=== PATIENT | female | born 1990 | race Caucasian/White ===

== ENCOUNTER 2023-10-03 15:05 | Outpatient (OUT) | payer BC, SELFPAY ==
[2023-10-03 16:00] LABS: Free T4 0.89 ng/dL (0.76-1.46)
[2023-10-03 16:08] LABS: Free T3 2.11 pg/mL (2.18-3.98); Thyroid Stimulating Hormone 3.067 uIU/mL (0.358-3.740)
== END 2023-10-03 15:06 | disposition home or self-care (01) ==
LOC: LAB 15:05
PROVIDERS: PCP Family Medicine; Visit Provider Family Medicine
DX: E03.9 Hypothyroidism, unspecified (principal)
CPT/HCPCS: 36415; 84439; 84443; 84481

== ENCOUNTER 2024-01-28 08:42 | Outpatient (OUT) | payer BC, SELFPAY ==
--- OUTSIDE RECORDS SUMMARY | 2024-01-28 08:58 | XMS_ITS | CCD ---
Author Organization [facility] Care Team Providers Care Soldering Inspector Name Role Phone CORA BURGOS L Attending Unavailable CUTLER, NAHEED L Referring Unavailable WENGERD, MARIE Attending Unavailable CUTLER, NAHEED L Referring Unavailable SAVITA, TERESA Attending Unavailable CUTLER, NAHEED L Referring Unavailable WENGERD, MARIE Attending Unavailable CUTLER, NAHEED L Referring Unavailable WENGERD, MARIE Attending Unavailable CUTLER, NAHEED L Referring Unavailable WENGERD, MARIE Attending Unavailable CUTLER, NAHEED L Referring Unavailable BURGOS, CORA L Attending Unavailable CUTLER, NAHEED L Referring Unavailable WENGERD, MARIE Attending Unavailable CUTLER, NAHEED L Referring Unavailable WENGERD, MARIE Attending Unavailable WENGERD, MARIE Attending Unavailable CUTLER, NAHEED L Referring Unavailable WENGERD, MARIE Attending Unavailable CUTLER, NAHEED L Referring Unavailable WENGERD, MARIE Attending Unavailable CUTLER, NAHEED L Referring Unavailable SAVITA, TERESA Attending Unavailable CUTLER, NAHEED L Referring Unavailable DO Ben Washburn Primary Care Provider Self, Referral Attending Provider Unavailable DO Ben Washburn Referring Provider [phone] Ben Washburn Primary Care Unavailable Self, Referral Attending Unavailable Self, Referral Admitting Unavailable Ben Washburn Referring Unavailable Problems Problem Classification Problem Date Documented Da te Episodic/Chronic Other screening for suspected conditions (not mental disorders or infectious disease) (1 source) Encounter for screening mammogram for malignant neoplasm of breast; Translations: [Encounter for screening mammogram for malignant neoplasm of breast] Onset: 01-17-2024 Episodic Results Test Name Value Interpretation Reference Range Facil ity MM screening mammo BI w/CADo n 01-19-2024 MM screening mammo BI w/CAD [facility] Main [place] [address] [place] [address] Mammography Report Signed Patient: Melissa Chand MR#: [id number] 57 : 12/17/1968 Acct:[id number] Age/Sex: 55 / F ADM Date: 01/17/24 Loc: [place] Room: Type: [facility] Attending Dr: Referral Self Copies to: DO Ben Hernandez, SELF,REFERRAL Ordering Provider: SELF,REFERRAL Date of Service: 01/17/24 MM/MM screening mammo BI w/CAD: SCREENING CLINICAL DATA: Screening for malignancy. BILATERAL SCREENING MAMMOGRAMS - FULL FIELD DIGITAL WITH TOMOSYNTHESIS AND CAD Tomosynthesis craniocaudal and mediolateral oblique views of both breasts were obtained using low- dose digital technique. Comparison is made to prior studies from December 03, 2018 through January 22, 2022. This examination was reviewed with the aid of CAD. There are scattered fibroglandular densities. Benign calcified lesions and nodularity are seen. There are no developing masses, typically malignant calcifications or architectural distortion. There has been no significant interval change. MM/MM screening mammo BI w/CAD IMPRESSION: NO MAMMOGRAPHIC EVIDENCE OF MALIGNANCY. ROUTINE FOLLOW-UP IS RECOMMENDED IN ONE YEAR. RESULT CODE: 2 Benign Findings(s) DENSITY CODE: 2 (approximately 25-50% glandular) FOLLOW UP: 1YR The false-negative rate of mammography is approximately 10-percent. Management of a palpable abnormality must be based on clinical grounds. Patient was entered into a reminder system with a target due date for the next mammogram. Impression dictated by: Bria Sun M.D.01/19/2024 7:25 AM Dictation Location: [facility] Transcribed By: [facility] 01/19/2425 Dictated By: Bria Sun MD 01/19/24 0722 Signed By: 01/19/24 0725 Normal [facility] Encounters Encounter Date Encounter Type Care Provider Facility Start: 01-17-2024 End: 01-17-2024 ambulatory Ben Washburn Facility:[facility] Start: 01-17-2024 End: 01-17-2024 ambulatory DO Ben Washburn Work Phone: [facility] Work Phone: Start: 01-17-2024 End: 01-17-2024 Patient encounter procedure DO Ben Washburn Work Phone: [facility] Work Phone: Start: 11-06-2023 End: 11-06-2023 ambulatory MARIE WENGERD Not Available Start: 11-03-2023 End: 11-03-2023 ambulatory TERESA SAVITA Not Available Start: 10-28-2023 End: 10-28-2023 ambulatory MARIE WENGERD Not Available Start: 10-23-2023 End: 10-23-2023 ambulatory CORA L BURGOS Not Available Start: 10-21-2023 End: 10-21-2023 ambulatory TERESA SAVITA Not Available Start: 10-17-2023 End: 10-17-2023 ambulatory MARIE WENGERD Not Available Start: 10-07-2023 End: 10-07-2023 ambulatory MARIE WENGERD Not Available Start: 10-02-2023 End: 10-02-2023 ambulatory MARIE WENGERD Not Available Start: 09-25-2023 End: 09-25-2023 ambulatory MARIE WENGERD Not Available Start: 09-23-2023 End: 09-24-2023 ambulatory MARIE WENGERD Not Available Start: 09-16-2023 End: 09-16-2023 ambulatory MARIE WENGERD Not Available Start: 09-11-2023 End: 09-11-2023 ambulatory MARIE WENGERD Not Available Start: 09-05-2023 End: 09-07-2023 ambulatory CORA L BURGOS Not Available Plan of Treatment Date Care Activity Detail Author Start: 01-17-2024 MG Breast - bilatera l Screening [facility] Start: 01-17-2024 Screening mammograph y of bilateral breasts MM screening mammo BI w/CAD [facility] Payers Date Payer Category Payer Self-pay [id number] 2022 Unknown [id number] 1968 Unknown [id number] 2.16.84 [id number] 1968 Unknown [id number] 2.16.84 0.1.192367.3.579.2.1259 1968 Unknown [id number] 2.16.840 .1.247765.3.579.2.9 1968 Unknown [id number] 2.16.840 .1.885301.3.579.2.1259 1968 Unknown [id number] 2.16.840 .1.690294.3.579.2.9 1968 Unknown [id number] 2.16.840 .1.938965.3.579.2.1259 1968 Unknown [id number] 2.16.840 .1.878170.3.579.2.1259 1968 Unknown [id number] 2.16.840 .1.933069.3.579.2.1259 1968 Unknown [id number] 2.16.840 .1.337981.3.579.2.9 1968 Unknown [id number] 2.16.840 .1.960471.3.579.2.1259 1968 Unknown [id number] 2.16.840 .1.581736.3.579.2.1259 1968 Unknown [id number] 2.16.840 .1.033935.3.579.2.1259 1968 Unknown [id number] 2.16.840.1 .450582.3.579.2.1259 Unknown [id number] 2.16.8 40.1.565109.3.579.2.531 Social History Date Type Detail Facility Tobacco smoking stat [facility] Unknown if ever smoked [facility] Work Phone: Start: 12-17-1968 Sex Assigned At Female F [facility] Evaluation note Note Date & Type Note Facility Evaluation note No assessment information availa karen [facility] Work Phone: Summary Purpose Family History No Family History Records FoundNo Family History Records Found Advance Directives No Advanced Directives Records Found Advance Directive Response Recorded Date/ Time Advance Directives No December 28 5:41pm Chief Complaint and Reason for Visit Chief Complaint Screening Additional Source Comments INFORMATION SOURCE (unrecogn ized section and content) DATE CREATED AUTHOR 11/08/2023 [facility] EPIC DATE CREATED AUTHOR AUTHOR'S ORGANIZ ATION 01/19/2024 [facility] Care Teams (unrecognized sec tion and content) Team Status: Active Member Role Status Dates Ben Washburn DO Primary Care Provider Active Team Status: Inactive Member Role Status Dates Ben Washburn DO Primary Care Provider Active St art: January 17, 2024 End: January 17, 2024 Referral Self Attending Provider Active Start: Tracy biggs 2023 End: January 17, 2024 Ben Washburn DO Referring Provider Active Start : January 17, 2024 End: January 17, 2024 Goals (unrecognized section and content) Goals may be documented in a n alternate section FOR RECORDS PERTAINING TO PATIENTS WHO ARE OR HAVE BEEN ENROLLED IN A CHEMICAL DEPENDENCY/SUBSTANCEABUSE PROGRAM, SOME INFORMATION MAY BE OMITTED. This clinical summary was aggregated from multiple sources. Caution should be exercised in using it in the provision of clinical care. This summary normalizes information from multiple sources, and as a consequence, information in this document may materially change the coding, format and clinical context of patient data. In addition, data may be omitted in some cases. CLINICAL DECISIONS SHOULD BE BASED ON THE PRIMARY CLINICAL RECORDS. [facility]. provides no warranty or guarantee of the accuracy or completeness of information in this document.
[2024-01-28 09:04] LABS: Basophils Absolute Auto 0.1 10^3/uL (0.0-0.1); Basophils Percent Auto 1.1 % (0.2-2.0); Eosinophils Absolute Auto 0.1 10^3/uL (0.0-0.7); Eosinophils Percent Auto 2.7 % (0.9-7.0); Hematocrit 38.2 % (36.0-48.0); Hemoglobin 12.1 g/dL (12.0-16.0); Immature Granulocytes Abs Auto 0.01 10^3/uL (0.00-0.03); Immature Granulocytes Pct Auto 0.2 % (0.0-0.5); Lymphocytes Absolute Auto 1.4 10^3/uL (1.2-3.8); Lymphocytes Percent Auto 31.2 % (20.5-60.0); Mean Corpuscular HGB Conc 31.7 g/dL (29.9-35.2); Mean Corpuscular Hemoglobin 29.4 pg (26.7-34.0); Mean Corpuscular Volume 92.9 fL (81.0-99.0); Mean Platelet Volume 10.4 fL (9.5-13.5); Monocytes Absolute Auto 0.3 10^3/uL (0.3-0.8); Monocytes Percent Auto 6.6 % (1.7-12.0); Neutrophils Absolute Auto 2.6 10^3/uL (1.4-6.5); Neutrophils Percent Auto 58.2 % (43.0-75.0); Platelet Count 307 10^3/uL (150-450); Red Blood Count 4.11 10^6/uL (4.20-5.40); Red Cell Distribution Width 12.8 % (11.0-15.0); White Blood Count 4.5 10^3/uL (4.0-11.0)
[2024-01-28 09:29] LABS: Estimated Average Glucose 114 mg/dL; Glycohemoglobin A1C 5.6 % (4.5-6.2)
[2024-01-28 13:35] LABS: Alanine Aminotransferase 22 U/L (14-59); Albumin Level 3.3 g/dL (3.4-5.0); Alkaline Phosphatase 76 U/L (46-116); Anion Gap 13.1; Aspartate Amino Transferase 13 U/L (15-37); BUN Creatinine Ratio 18.6; Bilirubin Direct 0.1 mg/dL (0.0-0.2); Bilirubin Total 0.5 mg/dL (0.2-1.0); Calcium 8.3 mg/dL (8.5-10.1); Carbon Dioxide 25.1 mmol/L (21.0-32.0); Chloride 106 mmol/L (98-107); Chol HDL Ratio 3.1; Cholesterol 162 mg/dL (<=200); Estimated GFR (African America >60 (>=60); Estimated GFR (Non-African Ame >60 (>=60); Free T3 2.67 pg/mL (2.18-3.98); Globulin 3.2 g/dL; Glucose 101 mg/dL (74-106); HDL Cholesterol 52 mg/dL (40-60); LDL Cholesterol Calculated 96.6 mg/dL; Potassium 4.2 mmol/L (3.5-5.1); Sodium 140 mmol/L (136-145); Thyroid Stimulating Hormone 2.052 uIU/mL (0.358-3.740); Total Protein 6.5 g/dL (6.4-8.2); Triglycerides 67 mg/dL (<=150); VLDL CHOLESTEROL 13.4 mg/dL
== END 2024-01-28 08:43 | disposition home or self-care (01) ==
LOC: LAB 08:43
PROVIDERS: PCP Family Medicine; Visit Provider Family Medicine
DX: Z00.00 Encounter for general adult medical examination without abnormal findings (principal); E03.9 Hypothyroidism, unspecified
CPT/HCPCS: 36415; 80048; 80061; 80076; 83036; 84439; 84443; 84481; 85025

== ENCOUNTER 2025-06-08 08:08 | Emergency (ER) | payer OTHER, BC, SELFPAY ==
[2025-06-08 08:12] VITALS: PULSE 71; TEMP 36.5; O2SAT 98; BMI 44.3
[2025-06-08 08:18] VITALS: BP 131/89
--- OUTSIDE RECORDS SUMMARY | 2025-06-08 08:19 | XMS_ITS | Encounter Summary ---
Author Organization [facility] Address [address] [place] [address] Care Team Providers Care Cath Lab Nurse Name Role Phone Shaikh BAO Lauren Primary Care Provider Isael Rodarte MD Primary Care Provider Isael Rodarte MD Primary Care Provider Isael Rodarte MD Unavailable Isael Rodarte MD Unavailable Encounter Details Date Type Department Care Team (Late st Contact Info) Description 10/03/2023 Orders Only [facility] [address] [place] [address] Isael Rodarte MD [address] [place] [address] Acquired hypothyroidism (Primary Dx) Social History Tobacco Use Types Packs/Day Years Used Date Smoking Tobacco: Never Smokeless Tobacco: Never Comments Unknown Sex and Gender Information Value Date Recorded Sex Assigned at Not on file Legal Sex Female 1:33 PM EDT Gender Identity Not on file Sexual Orientation Not on file documented as of this encounter Plan of Treatment Not on file documented as of this encounter Visit Diagnoses Diagnosis Acquired hypothyroidism- Primary Unspecified hypothyroidism documented in this encounter Care Teams Cath Lab Nurse Relationship Specialty Start Date End Date Shaikh Lauren MD PCP - General Internal Medicine 10/01/23 10/22/23 Isael Rodarte MD PCP - General Family Medicine 10/23/23 01/27/24 Isael Rodarte MD [address] [place] [phone] PCP - General Family Medicine 01/28/24 Isael Rodarte MD [address] [place] [address] PCP - [employer] 01/26/2409/25 Isael Rodarte MD [address] [place] [phone] PCP - [employer] 01/25/25 documented as of this encounter
--- OUTSIDE RECORDS SUMMARY | 2025-06-08 08:19 | XMS_ITS | Patient Health Record ---
Author Organization [facility] vices Address [address] [place] [place], [place] [id number] Care Team Providers Care Chemical Operator Name Role Phone Ras Arenas Primary Care Provider Aida Medina Unavailable [phone] Amee Rogers Unavailable [phone] Allergies Allergen (clinical drug ingredient) Drug/Non Drug Allergy documented on EMR Reaction Allergy Type Onset Date Status Latex Latex Unknown Allergy Active Results Component Value Reference Range Notes LIPID PANEL WITH REFLEX TO D IRECT LDL Reviewed date:10/21/2024 08:00:50 AM Interpretation: Performing Lab: Notes/Report: CHOLESTEROL 170 100-199 mg/dL TRIGLYCERIDES 112 20-149 mg/dL VLDL-CHOL, CALCULATED 22 <30 mg/dL HDL-CHOL 48 >=50 mg/dL LDL-CHOL, CALCULATED 100 <130 mg/dL ADULT LDL CHOLESTEROL CLASSIFICATION <100mg/dL Optimal 100-129 Near/Abov e Optimal 130-159mg/dL Borderlin e High >160mg/dL High Risk Desirable range <100 mg/dL for patients with CHD or diabetes and <70 mg/dL for diabetic patients with known heart disease. Direct LDL is recommended for patients with triglycerides >400. LDL/HDL 2.1 <4.1 LDL/HDL RATIO MALE FEMALE below average risk <2.3 <2.3 average risk <5.0 <4.1 moderate risk <7.1 <5.6 high risk >7.1 >5.6 CHOL/HDL 3.5 2.0-4.5 HEMOGLOBIN A1C Reviewed date:10/21/2024 08:00:59 AM Interpretation: Performing Lab: Notes/Report: HEMOGLOBIN A1C 5.2 <5.7 % Prediabetes: 5.7% to 6.4% Diabetes: >6.4% Glycemic control for adults with diabetes: <7.0% Use with caution in patients with abnormal hemoglobin variants as the half-life of red blood cells and in vivo glycation rates are affected. AVERAGE WHOLE BLOOD GLUCOSE 103 <126 mg/dl UNLESS OTHERWISE INDICATED, ALL TESTING PERFORMED AT: [email or web address]. [address] [place] [address] SPECIFICATION CONSULTANT: FLAQUITA RIVERS M.D. CLIA NUMBER [id number] CAP ACCREDITATION AUID [id number] HIV-1 2 COMBO AG/AB Reviewed date:10/21/2024 08:00:56 AM Interpretation: Performing Lab: Notes/Report: Negative for HIV-1 antigen and HIV-1/HIV-2 antibodies. No laboratory evidence of HIV infection. Does not exclude the possibility of exposure to or infection with HIV-1 and/or HIV-2 that are below the limit of detection of this assay. HIV-1,2 COMBO AG/AB Nonreactive Nonreactive HIV-1 p24 Ag Nonreactive Nonreactive HIV-1/HIV-2 Abs Nonreactive Nonreactive UDS PAP Screening Reviewed date:05/25/2025 08:30:45 AM Interpretation: Performing Lab: Notes/Report: UDS HPV Screening Reviewed date:05/25/2025 08:25:35 AM Interpretation: Performing Lab: Notes/Report: DRUGS OF ABUSE 7 PANEL URINE - SCREEN REFLEX TO CONFIRMATION Reviewed date:11/08/2024 06:58:07 AM Interpretation: Performing Lab: Notes/Report: CLIA NUMBER [id number] CAP ACCREDITATION AUID [id number] SPECIFICATION CONSULTANT: FLAQUITA RIVERS M.D. [email or web address]. [address] [place] [address] UNLESS OTHERWISE INDICATED, ALL TESTING PERFORMED AT: Oxidant <=200 mg/L Creatinine,Urinary >=20 mg/dL Phencyclidine 25 ng/mL Oxycodone 100 ng/mL Opiates 300 ng/mL THC(Marijuana) 20 ng/mL Cocaine 150 ng/mL Benzodiazepines 100 ng/mL Barbiturates 200 ng/mL Amphetamines 300 ng/mL CUTOFFS FOR DRUG SCREEN TESTING: AMPHETAMINES NEGATIVE BARBITURATES NEGATIVE BENZODIAZEPINE NEGATIVE COCAINE NEGATIVE THC (CANNABIS) NEGATIVE OPIATES NEGATIVE PHENCYCLIDINE NEGATIVE OXYCODONE NEGATIVE CREATININE,URINARY 30.3 OXIDANT 12 Strep Screen Reviewed date:02/21/2025 07:11:56 PM Interpretation: Performing Lab: Notes/Report: Result positive Reason For Referral No Information Medications Medication SIG (Take, Route, Frequency, Duration) Notes Start Date End Date Status Liraglutide 18 MG/3ML as directed Subcutaneous daily; Duration: 30 days 01/03/2025 Not-Taking Fluconazole 200 MG 1 tablet Orally; Duration: 10 day(s) 02/10/2025 Active Topamax 25 MG 1 tablet Orally twic e a day; Duration: 90 days 10/14/2024 Active Zoloft 50 MG 1 tablet Orally Once a day; Duration: 90 days Active Meclizine HCl 12.5 MG 1 tablet as needed Orally every 12 hrs; Duration: 7 days 12/28/2024 Active Amoxicillin 500 MG 1 capsule Orally twi ce a day; Duration: 10 days 02/10/2025 Active Levothyroxine Sodium 88 MCG 1 tablet in the morning on an empty stomach Orally Once a day; Duration: 90 days 11/24/2024 Active SUMAtriptan Succinate 25 MG TAKE 1 TAB ONE TIME IF NEEDED FOR MIGRAINE. MAY REPEAT DOSE 2 HRS IF NO RELIEF.MAX 2 TABS/24HRS Oral daily; Duration: 30 days appropriate amount Active Phentermine HCl 37.5 MG 1 capsule Orally Once a day; Duration: 30 days 12/06/2024 Active predniSONE 50 MG 1 tablet with food o r milk Orally Once a day; Duration: 5 day(s) 01/17/2025 Active Social History Tobacco Use: Social History Observation Description Date Details (start date - stop date) Never Smoker NA - NA Sex Assigned At : Social History Observation Description Sex Assigned At Female Tobacco Use/Smoking Question Answer Notes Tobacco use: nonsmoker patient enter ed data CAGE-AID Questionnaire (2018 Edition) Question Answer Notes Have you ever felt that you ought to cut down on your drinking or drug use? No patient entered data Have people annoyed you by c riticizing your drinking or drug use? No patient entered data Have you ever felt bad or gu ilty about your drinking or drug use? No patient entered data Have you ever had a drink or used drugs first thing in the morning to steady your nerves or to get rid of a hangover? No patient entered data CAGE-AID Score 0 Interpretation Negative PRAPARE Question Answer Notes Date Completed/Updated: 11/16/2024 fermin nt entered data What is your current housing situation? I have housing patient entered data Are you worried about losing your housing? No patient entered data What is the highest level of school that you have finished? 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 Check all that apply I do not have problems meeting my needs Has lack of transportation k ept you from medical appointments, meetings, work or from getting things needed for daily living? No How often do you see or talk to people that you care about and feel close to? (For example: talking to friends on the phone, visiting friends or family, going to mormon or club meetings) More than 5 times a week patient entered data How stressed are you? Stress is when someone feels tense, nervous, anxious, or can't sleep at night because their mind is troubled Quite a bit patient entered data In the past year have you sp ent more than 2 nights in a row in a long term, [place] health care facility, care home center, or juvenile correctional facility? No patient entered kassy a Are you a refugee? No patient en tered data What country are you from? [place] pradeep lópez entered data Do you feel physically and emotionally safe where you currently live? Yes patient entered data In the past year, have you b een afraid of your partner or ex-partner? No patient entered data PRAPARE Score: 2 Problems Problem Type SNOMED Code ICD Code Onset Dates Problem Status W/U Status Risk Notes Problem Anxiety (43584481) Anxiety (F41.9) Active confirmed Problem BMI 40.0-44.9, adult (Z68.41) Active confirmed Problem Obese (576834910) Obese (E66.9) Active confirmed Vital Signs Heart Rate 66 /min 02/01/2025 Hardin, Ser vando 02/01/2025 09:55:43 AM EDT > Temperature 97.7 degrees Fahrenheit 02/01/2025 Vald ovinos, Dawson 02/01/2025 09:55:43 AM EDT > Respiratory Rate 18 /min 02/10/2025 Hardin, Dawson 02/10/2025 08:26:17 AM EDT > Height-cm 175.26 cm 02/10/2025 Hardin, Ser vando 02/10/2025 08:26:17 AM EDT > Oximetry 98 % 02/01/2025 Hardin, Ser vando 02/01/2025 09:55:43 AM EDT > Blood pressure diastolic 88 mm Hg 02/01/2025 Shereen dovinos, Dawson 02/01/2025 09:55:43 AM EDT > Weight-kg 133.81 kg 02/01/2025 Hardin, Ser vando 02/01/2025 09:55:43 AM EDT > Height 69 in 02/10/2025 Hardin, Ser vando 02/10/2025 08:26:17 AM EDT > Blood pressure systolic 133 mm Hg 02/01/2025 Vald ovinos, Dawson 02/01/2025 09:55:43 AM EDT > Weight 295 lbs 02/01/2025 Hardin, Ser vando 02/01/2025 09:55:43 AM EDT > BMI 43.56 kg/m2 02/01/2025 Hardin, Ser vando 02/01/2025 09:55:43 AM EDT > Encounters Encounter Location Date Provider Diagnosis Main [address] [place], [place] [id number] 10/14/2024 Ras Arenas Encounter for wellne ss examination in adult Z00.00 ; Screening for diabetes mellitus Z13.1 ; Encounter for screening for HIV Z11.4 ; Screening for cervical cancer Z12.4 ; Encounter for screening for cardiovascular disorders Z13.6 ; Dietary counseling Z71.3 ; Exercise counseling Z71.82 ; Obese E66.9 and BMI 40.0-44.9, adult Z68.41 Main [address] [place], [place] [id number] 11/03/2024 Ras Studd [address] [place], [place] [id number] 11/16/2024 Ras Studd Obese E66.[address] [place], [place] [id number] 12/06/2024 Ras Studd BMI 40.0-44.9, adult Z68.41 and Anxiety F41.[address] [place], [place] [id number] 01/03/2025 Ras Studd BMI 40.0-44.9, adult Z68.[address] [place], [place] [id number] 02/01/2025 Amee [facility] for weight management Z76.[address] [place], [place] [id number] 02/10/2025 Ras Studd Strep pharyngitis J0 2.[address] [place], [place] [id number] 11/04/2024 Ras Studd BMI 40.0-44.9, adult Z68.41 and Obese E66.[address] [place], [place] [id number] 11/09/2024 Ras Studd [address] [place], [place] [id number] 11/12/2024 Ras Studd [address] [place], [place] [id number] 11/23/2024 Ras Studd [address] [place], [place] [id number] 11/23/2024 Ras Studd [address] [place], [place] [id number] 11/24/2024 Ras Studd [address] [place] [id number] 12/02/2024 Ras Studd [place] [address] [place] [address] et [place], [place] [id number] 12/13/2024 Ras Studd [address] [place], [place] [id number] 12/28/2024 Ras Studd [address] [place], [place] [id number] 01/17/2025 Ras Studd [address] [place], [place] [id number] 01/28/2025 Ras Studd [address] [place], [place] [id number] 01/31/2025 Ras Studd BMI 40.0-44.9, adult Z68.[address] [place], [place] [id number] 02/01/2025 Ras Studd BMI 40.0-44.9, adult Z68.[address] [place], [place] [id number] 02/01/2025 Ras Studd BMI 40.0-44.9, adult Z68.[address] [place], [place] [id number] 04/04/2025 Ras Studd Main [address] [place], [place] [id number] 04/26/2025 Ras Studd Main [address] [place], [place] [id number] 05/30/2025 Ras Studd Anxiety F41.9 Assessments Encounter Date Diagnosis (ICD Code) Assessment Notes Treatment Notes Treatment Clinical Notes Section Notes 12/06/2024 BMI 40.0-44.9, adult (ICD-10 - Z68.41) I will continue Phentamine controlled substance agreement signed OARS review pt has demonstrated weight loss 01/03/2025 BMI 40.0-44.9, adult (ICD-10 - Z68.41) Pt will start Victoza daily at this time I discussed the risk with the pt she almanza top Phentamine at this encouraged exercise and healthy diet pt will follow in 4 weeks pt agreeable with the plan 11/16/2024 Obese (ICD-10 - E66.9) pt has been exhibiting lifestyle changes and has lsot weight ove the last month. i will continue the phentramine 37.5mg as this is what she has been perscribed by her previous perscriber. I have taken over the phentramien perscribing at this time. Pt has signed a contorlled substance agreement with me. OARS has been checked. pt vitals are stable pts has no cardiac concerns pt is utilizes IUD for contraception pt will call with any symptoms pt will report to ER with worrisome symptoms such as SOB, chest pain, severe headache etc pt will follow in 4 weeks for BP check, weight loss check and refill 12/06/2024 Anxiety (ICD-10 - F41.9) Pts anxiety has increased with life event I will increase her dose of Zoloft at this time 11/04/2024 BMI 40.0-44.9, adult (ICD-10 - Z68.41) 11/04/2024 Obese (ICD-10 - E66.9) 01/31/2025 BMI 40.0-44.9, adult (ICD-10 - Z68.41) 02/01/2025 BMI 40.0-44.9, adult (ICD-10 - Z68.41) 02/01/2025 BMI 40.0-44.9, adult (ICD-10 - Z68.41) 02/01/2025 Encounter for weight management (ICD-10 - Z76.89) 02/10/2025 Strep pharyngitis (ICD-10 - J02.0) We will treat with antibiotics. Complete the course as advised. Take Tylenol as needed. Keep yourself hydrated. Discussed reassuring vs non reassuring symptoms and when to return to office or go to ER. Patient verbalized understanding 05/30/2025 Anxiety (ICD-10 - F41.9) 10/14/2024 Screening for diabetes mellitus (ICD-10 - Z13.1) 10/14/2024 Encounter for wellness examination in adult (ICD-10 - Z00.00) Pt is here for wellness today. Overall health is okay. I advised to get baseline tests and pt is agreeable for that. I advised regular exercise and eating a balanced diet with focus on eating less fried and fatty foods and eating more fresh fruits and vegetable in an attempt to achieve and maintain a healthy BMI and PVU We discussed the importance of vaccination including covid shots and yearly flu shots and all questions were answered in detail today. Pt will see us back in 4 week to discuss weight loss and any abnormal labs 10/14/2024 Encounter for screening for HIV (ICD-10 - Z11.4) 10/14/2024 Screening for cervical cancer (ICD-10 - Z12.4) 10/14/2024 Encounter for screening for cardiovascular disorders (ICD-10 - Z13.6) 10/14/2024 Dietary counseling (ICD-10 - Z71.3) 10/14/2024 Exercise counseling (ICD-10 - Z71.82) 10/14/2024 Obese (ICD-10 - E66.9) 10/14/2024 BMI 40.0-44.9, adult (ICD-10 - Z68.41) 11/23/2024 Other C[facility] Respon se got Denied on 2024-11-24 09:41:46 for 'Levothyroxine Sodium 88 MCG Capsule'Pharmacy Notes: Prescription not found. Contact Pharmacy by other means Plan Of Treatment No Information Insurance Providers Payer Name Payer Address Payer Phone Subscriber Number Group Number Insured Name Patient Relationship to Insured Coverage Start Date Coverage End Date Jose bs [address] [place], [place] [id number] Linnea Valle Self - patient is the insured Medical (General) History Medical History History ICD Code hypothyroidsim anxiety Surgical History Surgery Date(Month/Year) cholecystectomy 2019 Hospitalization History Reason Date(Month/Year) see surgical hx
--- OUTSIDE RECORDS SUMMARY | 2025-06-08 08:19 | XMS_ITS | Clinical Summary ---
Author Organization [facility] Healthcare Address [address] [place] [address] Care Team Providers Care Cigarette Tester Name Role Phone Isael Rodarte MD Primary Care Provider [phone] Isael Rodarte MD Unavailable Allergies No known active allergies Medications phentermine (Adipex-P) 37.5 MG tabletIndications:M orbid obesity due to excess calories (CMS-HCC) Take 1 tablet (37.5 mg) by mouth in the morning. Take before meals. 30 tablet 4 Active predniSONE (Deltasone) 10 MG tabletIndications:L umbar strain, initial encounter 6 PO daily x 3 days, 4 PO daily x 3 days, 2 PO daily x 3 days, 1 PO daily x 3 days 39 tablet 4 Active methocarbamol (Robaxin) 750 MG tabletIndications:L umbar strain, initial encounter Take 1 tablet (750 mg) by mouth 4 (four) times a day as needed for muscle spasms 30 tablet 2 4 Active SUMAtriptan (Imitrex) 25 MG tabletIndications:M igraine with aura and without status migrainosus, not intractable Take 1 tablet (25 mg) by mouth 1 (one) time if needed for migraine May repeat dose once in 2 hours if no relief. Do not exceed 2 doses in 24 hours. 9 tablet 3 4 Active sertraline (Zoloft) 25 MG tabletIndications:G eneralized anxiety disorder Take 1 tablet (25 mg) by mouth Daily 30 tablet 3 4 Active topiramate (Topamax) 25 MG tabletIndications:M igraine with aura, not intractable, without status migrainosus,Migrain e with aura Take 1 tablet (25 mg) by mouth in the morning and 1 tablet (25 mg) before bedtime. 180 tablet 1 4 Active levothyroxine (Synthroid, Levoxyl) 88 MCG tabletIndications:A cquired hypothyroidism TAKE 1 TABLET BY MOUTH IN THE MORNING BEFORE A MEAL 90 tablet 3 4 Active Active Problems Problem Noted Date Diagnosed Date Lumbar strain, initial encounter 03/02/2024 Assessment & Plan (03/02/2024 10:33 AM EDT): Recently with increased activity and exam shows strain. Treat with prednisone tapered over 12 days. Use robaxin PRN. Use OTC for pain. Use heat and massage PRN. Continue home stretches. Off work 02/23-03/07 and return 03/08. If no improvement in symptoms will need x-ray and PT. Acute non-recurrent pansinusitis 03/02/2024 Assessment & Plan (03/02/2024 10:31 AM EDT): Take antibiotics BID for 10 days. Use prednisone for inflammation. Use sudafed or other decongestants as needed. Use Robitussin or Robitussin-DM for cough. Can use afrin for congestion but no longer than 3 days. Can use Mucinex to bring up phlegm. Use Motrin or Tylenol as needed for fever, aches, or pains. Increase fluid intake and rest. Should improve over next 5-7 days and if no better or worse call for re-evaluation. Motion sickness 02/12/2024 Annual physical exam 01/28/2024 Assessment & Plan (01/28/2024 8:21 AM EDT): Due for labs. Discussed proper diet and regular aerobic exercise. Need aerobic exercise 5-6 days a week for 30 minutes at a time. Smaller portions and limit total calories. Colonoscopy after age 45. Tetanus every 10 years. Advised not to smoke. Discussed daily Aspirin therapy. Migraine with aura and witho ut status migrainosus, not intractable 10/02/2023 Assessment & Plan (11/27/2023 10:00 AM EST): GALLEGOS stable with topamax and continue. Use imitrex PRN. Generalized anxiety disorder 10/02/2023 Assessment & Plan (01/28/2024 8:21 AM EDT): Symptoms well controlled with zoloft and continue. Assessment & Plan (11/27/2023 10:00 AM EST): Symptoms controlled with zoloft and continue. Acquired hypothyroidism 10/02/2023 Assessment & Plan (11/27/2023 9:59 AM EST): No signs of low thyroid and continue synthroid. Assessment & Plan (10/02/2023 3:23 PM EST): No signs of low thyroid and continue medication. Due for labs. Metabolic syndrome 10/02/2023 Morbid obesity due to excess calories 10/02/2023 Assessment & Plan (02/12/2024 9:33 AM EDT): Patient doing well with adipex and lost 8 pounds since last visit. Tolerating well with only mild dry mouth. Continue with dietary changes and less calories. Need to limit snacking and smaller portions. Continue healthier choices. Need regular aerobic exercise 30 minutes at a time 5-6 days a week. Refill for another month. OARRS reviewed. Continue meds as prescribed. If develop new or worsening symptoms contact office. Assessment & Plan (01/28/2024 8:22 AM EDT): Patient doing well with adipex and lost 12 pounds since starting. Tolerating well with only mild dry mouth. Continue with dietary changes and less calories. Need to limit snacking and smaller portions. Continue healthier choices. Need regular aerobic exercise 30 minutes at a time 5-6 days a week. Refill for another month. OARRS reviewed. Continue meds as prescribed. If develop new or worsening symptoms contact office. Assessment & Plan (11/27/2023 10:00 AM EST): Patient doing well with adipex and lost 12 pounds in 2 months. Tolerating well with only mild dry mouth. Continue with dietary changes and less calories. Need to limit snacking and smaller portions. Continue healthier choices. Need regular aerobic exercise 30 minutes at a time 5-6 days a week. Refill for another month. OARRS reviewed. Continue meds as prescribed. If develop new or worsening symptoms contact office. Assessment & Plan (10/30/2023 1:42 PM EST): Doing well with adipex and weight down 8 pounds. Continue for another month. Assessment & Plan (10/02/2023 3:24 PM EST): Patient overweight and difficult time losing weight. Discussed proper diet and regular aerobic exercise. Recommend Weight Watchers and need to limit calories and smaller portions. Need to increase activity and regular aerobic exercise several days a week for 30 minutes at a time. Interested in adipex and warned of potential cardiac side effects. Script written for first month and will need to recheck weight in 1 month. OARRS reviewed. Continue medications as prescribed. Resolved Problems Problem Noted Date Diagnosed Date Resolved Date Vaginal saul 10/02/2023 11/27/2023 Assessment & Plan (10/02/2023 3:24 PM EST): C/o yeast infection and treat with diflucan. Family History Medical History Relation Name Comments Hypertension Father Hypertension Mother Heart disease Paternal Grandfather Cancer Paternal Grandmother Relation Name Status Comments Father Mother Paternal Grandfather Paternal Grandmother Social History Tobacco Use Types Packs/Day Years Used Date Smoking Tobacco: Never Smokeless Tobacco: Never Tobacco Cessation:Counseling Given: Not Answered Social Connection and Isolat ion Panel [NHANES] Answer Date Recorded In a typical week, how many times do you talk on the phone with family, friends, or neighbors? More than three times a week 01/27/2024 How often do you get togethe r with friends or relatives? More than three times a week 01/27/2024 How often do you attend chur or cheondoism services? 1 to 4 times per year 01/27/2024 Do you belong to any clubs o r organizations such as sikh groups, unions, fraternal or athletic groups, or school groups? Yes 01/27/2024 How often do you attend meet ings of the clubs or organizations you belong to? 1 to 4 times per year 01/27/2024 Are you , , di vorced, , never , or living with a partner? 01/27/2024 AUDIT-C Answer Date Recorded Q1: How often do you have a drink containing alc ohol? 2-4 times a month 01/27/2024 Q2: How many drinks containi ng alcohol do you have on a typical day when you are drinking? 3 or 4 01/27/2024 Q3: How often do you have si x or more drinks on one occasion? Less than monthly 01/27/2024 Overall Financial Resource Strain (CARDIA) Answe r Date Recorded How hard is it for you to pa y for the very basics like food, housing, medical care, and heating? Not hard at all 01/27/2024 [facility] - Occupational Stress Questionnaire Answer Date Recorded Do you feel stress - tense, restless, nervous, or anxious, or unable to sleep at night because your mind is troubled all the time - these days? To some extent 01/27/2024 Exercise Vital Sign Answer Date Recorde d On average, how many days pe r week do you engage in moderate to strenuous exercise (like a brisk walk)? 4 days 01/27/2024 On average, how many minutes do you engage in exercise at this level? 60 min 01/27/2024 Hunger Vital Sign Answer Date Recorded Within the past 12 months, y ou worried that your food would run out before you got the money to buy more. Never true 01/27/20 24 Within the past 12 months, t he food you bought just didn't last and you didn't have money to get more. Never true 01/27/2024 PRAPARE - Transportation Answer Date Re corded In the past 12 months, has l ack of transportation kept you from medical appointments or from getting medications? No 11/2023 In the past 12 months, has l ack of transportation kept you from meetings, work, or from getting things needed for daily living? No 01/27/2024 Housing Stability Vital Sign Answer Blu e Recorded In the last 12 months, was t here a time when you were not able to pay the mortgage or rent on time? No 01/27/2024 Number of Places Lived in the Last Year Not on f ile 01/27/2024 In the last 12 months, was t here a time when you did not have a steady place to sleep or slept in a detention (including now)? No 01/27/2024 Comments Unknown Sex and Gender Information Value Date Recorded Sex Assigned at Not on file Legal Sex Female 1:33 PM EDT Gender Identity Not on file Sexual Orientation Not on file Last Filed Vital Signs Vital Sign Reading Time Taken Comments Blood Pressure 150/90 03/02/2024 9:51 AM EDT Pulse 94 03/02/2024 9:51 AM EDT Temperature 36.9 C (98.4 F) 03/02/2024 9:51 AM EDT Respiratory Rate 20 03/02/2024 9:51 AM EDT Oxygen Saturation 98% 03/02/2024 9:51 AM EDT Inhaled Oxygen Concentration - - Weight 120 kg (264 lb) 03/02/2024 9:51 AM EDT Height 175.3 cm (5' 9 ) 03/02/2024 9:51 AM EDT Body Mass Index 38.99 03/02/2024 9:51 AM EDT Plan of Treatment Health Maintenance Due Date Last Done Comments Pap Smear 01/07/2012 Influenza Vaccine (#1) 2025 08/09/2019 Cervical Cancer Screening 09/30/2029 HPV/Cotest 09/30/2029 09/30/2024 Insurance [employer] Care Teams Cigarette Tester Relationship Specialty Start Date End Date Isael Rodarte MD [address] [place] [address] PCP - General Family Medicine 01/28/24 Isael Rodarte MD [address] [place] [address] PCP - [facility] 01/25/25
--- OUTSIDE RECORDS SUMMARY | 2025-06-08 08:19 | XMS_ITS | Encounter Summary ---
Author Organization [employer] Address [id number] [address] [place] [address] Care Team Providers Care Pm Technician Name Role Phone No Pcp, No Pcp Primary Care Provider Unavailabl e Encounter Details Date Type Department Care Team (Late st Contact Info) Description 10/18/2024 Orders Only [facility] [address] [place] [address] Margot Bennett, DAIANA BMI 40.0-44.9, adult (CMS-HCC); Obesity, Class III, BMI 40-49.9 (morbid obesity) (CMS-HCC); Weight loss counseling, encounter for Social History Tobacco Use Types Packs/Day Years Used Date Smoking Tobacco: Never Smokeless Tobacco: Never Alcohol Use Standard Drinks/Week Comments Yes 0 (1 standard drink = 0.6 oz pur e alcohol) once per month PHQ-2 Answer Date Recorded Total Score 4 09/30/2024 Childcare Answer Date Recorded Childcare Unknown 04/07/2019 Employment Answer Date Recorded Employment Unknown 04/07/2019 Hunger Screening Answer Date Recorded Within the past 12 months we worried whether our food would run out before we got money to buy more. Never True 09/30/2024 Within the past 12 months th e food we bought just didn't last and we didn't have money to get more. Never True 09/30/2024 Purpose - Life Answer Date Recorded Purpose and direction in life Unknown Comments No Sex and Gender Information Value Date Recorded Sex Assigned at Not on file Legal Sex Female 11:44 AM EDT Gender Identity Not on file Sexual Orientation Not on file documented as of this encounter Plan of Treatment Not on file documented as of this encounter Procedures Procedure Name Priority Date/Time Associated Diagnosis Comments CBC WITH AUTO DIFFERENTIAL Routine 10/14/2024 BMI 40.0-44.9, adult ([facility]) Obesity, Class III, BMI 40-49.9 (morbid obesity) ([facility]) Weight loss counseling, encounter for COMPREHENSIVE METABOLIC PANEL Routine 10/14/2024 BMI 40.0-44.9, adult ([facility]) Obesity, Class III, BMI 40-49.9 (morbid obesity) ([facility]) Weight loss counseling, encounter for documented in this encounter Results * Comprehensive metabolic panel (10/14/2024) 10/14/2024 us Melissa L [employer] DO LAB BLOOD ORDERABLES Final Res ult Performing Organization Address [facility] [[email or web address]] Co de Phone Number SUNQUEST * CBC auto differential (10/14/2024) 10/14/2024 us Zalando DO LAB BLOOD ORDERABLES Final Res ult Performing Organization Address [facility] [[email or web address]] Co de Phone Number SUNQUEST documented in this encounter Visit Diagnoses Diagnosis BMI 40.0-44.9, adult ([facility]) Obesity, Class III, BMI 40-49.9 (morbid obesity) ([facility]) Weight loss counseling, encounter for documented in this encounter Additional Health Concerns Assessment Noted Time PHQ-9 Depression Total Score: 4 09/30/20 24 11:53 AM EST A Body Mass Index follow-up plan has been documented for the patient 09/30/2024 1:08 PM EST documented as of this encounter Care Teams Pm Technician Relationship Specialty Start Date End Date No Pcp, [place] [address] PCP - General Family Medicine 02/17/20 documented as of this encounter
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
--- OUTSIDE RECORDS SUMMARY | 2025-06-08 08:19 | XMS_ITS | CCD ---
Author Organization [facility] Care Team Providers Care Secretary To Board Of Commissioners Name Role Phone SANA AKBAR Unavailable Unavailable NADERER, DR ISAEL Kurtz Admitting Unavailable NADERER, DR ISAEL Kurtz Attending Unavailable NADERER, DR ISAEL Kurtz Consulting Unavailable NADERER, DR ISAEL Kurtz Primary Care Unavailable NADERER, DR ISAEL Kurtz Admitting Unavailable NADERER, DR ISAEL Kurtz Attending Unavailable NADERER, DR ISAEL Kurtz Consulting Unavailable NADERER, DR ISAEL Kurtz Primary Care Unavailable NADERER, DR ISAEL Kurtz Admitting Unavailable NADERER, DR ISAEL Kurtz Attending Unavailable NADERER, DR ISAEL Kurtz Consulting Unavailable NADERER, DR ISAEL Kurtz Primary Care Unavailable REINECK, DR TREVOR Pacheco Admitting Unavailabl e NADERER, DR ISAEL Kurtz Primary Care Unavailable REINECK, DR TREVOR Pacheco Attending Unavailabl e REINECK, DR TREVOR Pacheco Consulting Unavailabl e LIN, VERONICA Attending Unavailable LIN, VERONICA Admitting Unavailable JUAN DANIEL .RHONA Consulting Unavailable NADERER, DR ISAEL Kurtz Primary Care Unavailable SALLY MANN Attending Unavailable JESSICA .SHARON Consulting Unavailabl e NADERER, DR ISAEL Kurtz Primary Care Unavailable SALLY MANN Admitting Unavailable NADERER, ISAEL Attending Unavailable NADERER, ISAEL Attending Unavailable NADERER, ISAEL Attending Unavailable NADERER, ISAEL Attending Unavailable NADERER, ISAEL Attending Unavailable Naderer Isael GORE Primary Care Provider Isael Lazcano MD Unavailable KASSI DIAZ Attending Unavailable NO PCP, NO PCP Primary Care Unavailable TONE MCKENNA Attending Unavailable NO PCP, NO PCP Primary Care Unavailable KASSI BRIGGS Referring Unavailable NO PCP, NO PCP Primary Care Unavailable Allergies Allergy Classification Reported Allergen(s) Allergy Type Date of Onset Reaction(s) Facility (1 source) Latex Drug allergy (disorder) [facility] Repository (2 sources) natural latex rubber; Translations: [LATEX, NATURAL RUBBER] Propensity to adverse reactions to drug (disorder) 7 [facility] Repository Medications Current Medications Medication Drug Class(es) Dates Sig (Normalized) Sig (Original) levothyroxine sodium 0.088 mg oral tablet (3 sources) l-Thyroxine Start: 10-03-2023 take 1 tablet by mouth before mealtime levothyroxine (Synthroid, Levoxyl) 88 MCG tablet Indications: Acquired hypothyroidism (CMS/HCC) Take 1 tablet (88 mcg) by mouth in the morning. Take before meals. 90 tablet 3 10/03/2023 Active methocarbamol 750 mg oral tablet (3 sources) Muscle Relaxant Start: 03-02-2024 take 1 tablet by mouth four times daily as needed for muscle spasms methocarbamol (Robaxin) 750 MG tablet Indications: Lumbar strain, initial encounter Take 1 tablet (750 mg) by mouth 4 (four) times a day as needed for muscle spasms 30 tablet 2 03/02/2024 Active phentermine hydrochloride 37.5 mg oral tablet (3 sources) Sympathomimetic Amine Anorectic Start: 02-12-2024 take 1 tablet by mouth before mealtime phentermine (Adipex-P) 37.5 MG tablet Indications: Morbid obesity due to excess calories (CMS/HCC) Take 1 tablet (37.5 mg) by mouth in the morning. Take before meals. 30 tablet 02/12/2024 Active predniSONE 10 mg oral tablet (3 sources) Start: 03-02-2024 take 6 tablets by mouth once daily, then take 4 tablets by mouth once daily, then take 2 tablets by mouth once daily, then take 1 tablet by mouth once daily predniSONE (Deltasone) 10 MG tablet Indications: Lumbar strain, initial encounter 6 PO daily x 3 days, 4 PO daily x 3 days, 2 PO daily x 3 days, 1 PO daily x 3 days 39 tablet 03/02/2024 Active sertraline 25 mg oral tablet (5 sources) Serotonin Reuptake Inhibitor Start: 10-13-2024 take 1 tablet by mouth once daily sertraline (Zoloft) 25 MG tablet Indications: Generalized anxiety disorder (CMS/HCC) Take 1 tablet (25 mg) by mouth Daily 30 tablet 3 10/13/2024 Active Start: 10-13-2024 End: 10-13-2024 take 1 tablet by mouth once daily sertraline (Zoloft) 50 MG tablet Indications: Generalized anxiety disorder (CMS/HCC) Take 1 tablet (50 mg) by mouth Daily 30 tablet 5 10/13/2024 10/13/2024 Discontinued (Dose adjustment) Start: 04-22-2024 End: 10-13-2024 take 1 tablet by mouth once daily sertraline (Zoloft) 25 MG tablet Indications: Generalized anxiety disorder (CMS/HCC) Take 1 tablet (25 mg) by mouth Daily 90 tablet 3 04/22/2024 10/13/2024 Discontinued (Reorder) SUMAtriptan 25 mg oral tablet (3 sources) Serotonin-1b and Serotonin-1d Receptor Agonist Start: 08-23-2024 SUMAtriptan (Imitrex) 25 MG tablet Indications: Migraine with aura and without status migrainosus, not intractable (CMS/HCC) Take 1 tablet (25 mg) by mouth 1 (one) time if needed for migraine May repeat dose once in 2 hours if no relief. Do not exceed 2 doses in 24 hours. 9 tablet 3 08/23/2024 Active topiramate 25 mg oral tablet (4 sources) Start: 10-14-2024 take 1 tablet by mouth in the morning topiramate (Topamax) 25 MG tablet Indications: Migraine with aura, not intractable, without status migrainosus (CMS/HCC) , Migraine with aura (CMS/HCC) Take 1 tablet (25 mg) by mouth in the morning and 1 tablet (25 mg) before bedtime. 180 tablet 1 10/14/2024 Active Start: 09-28-2024 End: 10-14-2024 take 1 tablet by mouth twice daily topiramate (Topamax) 25 MG tablet Indications: Migraine with aura, not intractable, without status migrainosus (CMS/HCC) , Migraine with aura (CMS/HCC) TAKE 1 TABLET BY MOUTH TWICE A DAY 180 tablet 1 09/28/2024 10/14/2024 Discontinued (Reorder) Problems Active Problems Problem Classification Problem Date Documented Da te Episodic/Chronic Administrative/social admission (1 source) Dietary counseling and surveillance; Translations: [Dietary counseling and surveillance] Onset: 10-13-2024 Episodic Anxiety disorders (5 sources) Generalized anxiety disorder; Translations: [Generalized anxiety disorder] Onset: 10-02-2023 10-13-2024 Chronic Headache; including migraine (4 sources) Migraine with aura; Translations: [Migraine with aura, not intractable, without status migrainosus] Onset: 10-02-2023 11-27-2023 Chronic Headache; including migraine (4 sources) Headache; including migraine; Translations: [HEADACHE UNSPECIFIED] Onset: 08-18-2022 Other aftercare (1 source) Encounter for therapeutic drug level monitoring; Translations: [ENC THERAPEUTC DRUG LEVL MONITORING] Onset: 02-06-2023 Episodic Other aftercare (2 sources) Other termite treater helper (current) drug therapy; Translations: [OTH SNF CURRENT DRUG THERAPY] Onset: 08-20-2022 Episodic Other connective tissue disease (1 source) Pain in right leg; Translations: [PAIN IN RIGHT LEG] Onset: 02-06-2023 Episodic Other nutritional; endocrine; and metabolic disorders (3 sources) Metabolic syndrome X; Translations: [Metabolic syndrome] Onset: 10-02-2023 10-02-2023 Chronic Other nutritional; endocrine; and metabolic disorders (3 sources) Morbid obesity; Translations: [Morbid (severe) obesity due to excess calories] Onset: 10-02-2023 11-27-2023 Chronic Other nutritional; endocrine; and metabolic disorders (1 source) Body mass index (BMI) 40.0-44.9, adult; Translations: [Body mass index (BMI) 40.0-44.9, adult] Onset: 09-30-2024 Chronic Other nutritional; endocrine; and metabolic disorders (1 source) Morbid (severe) obesity due to excess calories; Translations: [Morbid (severe) obesity due to excess calories] Onset: 10-13-2024 Chronic Other nutritional; endocrine; and metabolic disorders (1 source) Weight loss Onset: 10-13-2024 Episodic Syncope (4 sources) Syncope and collapse; Translations: [SYNCOPE AND COLLAPSE] Onset: 01-25-2023 Episodic Thyroid disorders (7 sources) Hypothyroidism, unspecified; Translations: [Acquired hypothyroidism] Onset: 01-02-2023 Chronic Unclassified (1 source) PRE-EMPLOYMENT / PRE-EMPLOYMENT() Onset: 05-27-2018 Unclassified (3 sources) CONTACT W/AND (SUSP) EXPOS COVID-19; Translations: [CONTACT W/AND (SUSP) EXPOS COVID-19] Onset: 10-24-2022 Unclassified (2 sources) LOW BACK PAIN, UNSPECIFIED; Translations: [LOW BACK PAIN, UNSPECIFIED] Onset: 04-08-2022 Unclassified (1 source) Gynecologic Exam Onset: 09-30-2024 Past or Other Problems Problem Classification Problem Date Documented Da te Episodic/Chronic E Codes: Natural/environment (1 source) Overexertion from strenuous movement or load, initial encounter; Translations: [OVEREXERT STRENUOUS MVMT/LOAD INIT] Onset: 04-08-2022 Episodic Mycoses (3 sources) Candidiasis of vagina; Translations: [Vaginal saul] Onset: 10-02-2023 Resolved: 11-27-2023 11-27-2023 Episodic Other injuries and conditions due to external causes (3 sources) Motion sickness; Translations: [Motion sickness, initial encounter] Onset: 02-12-2024 02-12-2024 Episodic Other upper respiratory infections (4 sources) Acute upper respiratory infection, unspecified; Translations: [Acute pansinusitis] Onset: 10-24-2022 03-02-2024 Episodic Sprains and strains (4 sources) Strain of muscle, fascia and tendon of lower back, initial encounter; Translations: [Low back strain] Onset: 04-08-2022 03-02-2024 Episodic Unclassified (1 source) PRE-EMPLOYMENT; Translations: [PRE-EMPLOYMENT] Onset: 05-27-2018 Unclassified (1 source) CONTACT W/AND (SUSP) EXPOS COVID-19; Translations: [CONTACT W/AND (SUSP) EXPOS COVID-19] Onset: 10-17-2022 Unclassified (1 source) LOW BACK PAIN, UNSPECIFIED; Translations: [LOW BACK PAIN, UNSPECIFIED] Onset: 04-06-2022 Results Test Name Value Interpretation Reference Range Facility Cytologyon 09-30-2024 Cytology Normal [facility] Comment on above: Result Comment: [facility] [address] [place] [address] Gynecologic Cytology Consultation Patient Name:LINNEA VALLE:1990 (Age: 34)Gender:FTaken:4Reported:4Physician(s):Kassi Diaz [facility] ([phone])Copy To: Rec. #:[id number]: #[id number] Final Cytologic Interpretation ThinPrep Pap Test (Cervical): Satisfactory for evaluation. A transformation zone component is present. NEGATIVE FOR INTRAEPITHELIAL LESION OR MALIGNANCY. [facility] [place] Interpretation performed at [facility], [address] [place] [address], License number: [id number]. Electronically Signed Out By PAULETTE Isabel(ASCP) Date of Last Menstrual Period: (None Given) Other Clinical Conditions: IUD Z01.419 Computer Operations Analyst exam wo/abn findings Source of Specimen ThinPrep Pap Test (Cervical) Thin Prep Pap (INTERIOR DESIGN PROFESSOR) Fee Code(s): G0145 The Pap test is a screening test with an inherent, but low, probability of error. The Pap test is primarily effective for the diagnosis and prevention of squamous cell carcinoma. Regular screening is critical for prevention. ThinPrep liquid-based slides, which meet the Waste Water Operator criteria for automated screening, have been screened by the ThinPrep Imaging System (as of 07/13/07) along with an additional manual rescreening by a shuttle fitting supervisor and, if indicated, by a pathologist. HIGH RISK HPV W/GENOon 09-30 HPV 31+33+35+39+45+51+52 +56+58+59+66+68 DNA ANISH+probe Ql (Cvx) HPV SPECIMEN TYPE ThinPrep HPV 16 Negative (qualifier value) HPV 18 Negative (qualifier value) OTHER HIGH RISK HPV Negative (qualifier value) HPV types 31,33,35,39,45,52,56, 58,59,66 and 68 DNA were undetectable. Normal [facility] Comment on above: Performed By: #### 7 1431-1 #### [facility] ([id number]) [address] [place] [address], FIRST [address] [facility] ([id number]) [address] [facility], [address] [place] [address] CT FACIAL BONES WO CONon CT FACIAL BONES WO CON EXAM: CT FACIAL BONES WO CON REASON FOR EXAM: ATYPICAL FACIAL PAIN . Right-sided facial pain status post tooth extraction and damage to the sinuses. TECHNIQUE: Helical CT images of the face were obtained without IV contrast. Multiplanar reformats were generated at the scanner. Dose reduction technique used: Automated exposure control and/or adjustment of the mA and/or kV according to patient size and/or use of iterative reconstruction technique. COMPARISON: None. FINDINGS: Note: Compared with a contrast-enhanced CT exam, noncontrast images are relatively insensitive for detection of certain types of soft tissue and vascular abnormalities. Visualized Intracranial Contents: Within normal limits. Osseous structures: -Orbits: No orbital fracture. No retrobulbar hematoma. -Sinuses: Near complete opacification of the right maxillary sinus. Complete soft tissue effacement of the right infundibulum. Small mucous retention cyst in the left maxillary sinus. The remainder of the sinuses are clear. -Nasal bones: Intact. -Zygomatic arches: Intact. -Pterygoid plates: Intact. -Maxillary bone:Cortical discontinuity in the right maxillary bone/base of the right maxillary sinus at the site of the right maxillary second molar extraction such that there is continuity between the oral cavity and right maxillary sinus (for example series 6 image 23).. -Mandible: Intact. -Occipital condyles: Intact. -Mastoids: Intact. No mastoid effusion. Facial Soft Tissues: No evidence of soft tissue abscess. Visualized Upper Neck: Within normal limits. IMPRESSION: Status post right second maxillary molar extraction with resulting continuity between the oral cavity and right maxillary sinus. There is near complete opacification of the right maxillary sinus and soft tissue effacement of the right infundibulum, suspect for infectious sinusitis. Electronically authenticated by: BRAD ROBLES Date: 2023-03-26 18:[address] [facility] CBC AUTO DIFFon 01-25-2023 BASO # 0.0 103/ul Normal 0.0-0.1 [facility] [place] Comment on above: Performed By: #### C BC #### [facility] [address] [place] [address] Dr. Maico Mercer Basophils/100 WBC (Bld) 0.5 % Normal 0.2-2.0 [facility] Comment on above: Performed By: #### C BC #### [facility] [address] [place] [address] Dr. Maico Mercer EO # 0.1 103/ul Normal 0.0-0.7 [facility] Comment on above: Performed By: #### C BC #### [facility] [address] [place] [address] Dr. Maico Mercer Eosinophils/100 WBC (Bld) 0.9 % Normal 0.9-7.0 [facility] Comment on above: Performed By: #### C BC #### [facility] [address] [place] [address] Dr. Maico Mercer Erythrocyte distribution width (RBC) [Ratio] 12.7 % Normal 11.0-15.0 [facility] Comment on above: Performed By: #### C BC #### [facility] [address] [place] [address] Dr. Maico Mercer Hematocrit (Bld) [Volume fraction] 40.1 % Normal 36.0-48.0 [facility] Comment on above: Performed By: #### C BC #### [facility] [address] [place] [address] Dr. Maico Mercer Hemoglobin (Bld) [Mass/Vol] 13.2 g/dL Normal 12.0-16.0 [facility] Comment on above: Performed By: #### C BC #### [facility] [address] [place] [address] Dr. Maico Mercer IG # 0.01 10e3/ul Normal 0.00-0.[address] [facility] Comment on above: Performed By: #### C BC #### [facility] [address] [place] [address] Dr. Maico Mercer IG % 0.1 % Normal 0.0-0.[address] [facility] Comment on above: Performed By: #### C BC #### [facility] [address] [place] [address] Dr. Maico Mercer LYMPH # 1.5 103/ul Normal 1.2-3.8 [facility] Comment on above: Performed By: #### C BC #### [facility] [address] [place] [address] Dr. Maioc Mercer Lymphocytes/100 WBC (Bld) 19.0 % Critically low 20.5-60.0 [facility] Comment on above: Performed By: #### C BC #### [facility] [address] [place] [address] Dr. Maico Mercer MANUAL DIFF REQ NO Normal [facility] Comment on above: Performed By: #### C BC #### [facility] [address] [place] [address] Dr. Maico Mercer MCH (RBC) [Entitic mass] 29.7 pg Normal 26.7-34.0 [facility] Comment on above: Performed By: #### C BC #### [facility] [address] [place] [address] Dr. Maico Mercer MCHC (RBC) [Mass/Vol] 32.9 g/dL Normal 29.9-35.2 [facility] Comment on above: Performed By: #### C BC #### [facility] [address] [place] [address] Dr. Maico Mercer MCV (RBC) [Entitic vol] 90.3 fL Normal 81.0-99.0 [facility] Comment on above: Performed By: #### C BC #### [facility] [address] [place] [address] Dr. Maico Mercer MONO # 0.5 103/ul Normal 0.3-0.8 [facility] Comment on above: Performed By: #### C BC #### [facility] [address] [place] [address] Dr. Maico Mercer Monocytes/100 WBC (Bld) 5.9 % Normal 1.7-12.0 [facility] [place] Comment on above: Performed By: #### C BC #### [facility] [address] [place] [address] Dr. Maico Mercer NEUT # 5.7 103/ul Normal 1.4-6.5 [facility] Comment on above: Performed By: #### C BC #### [facility] [address] [address] [address] Maico Mercer Neutrophils/100 WBC (Bld) 73.6 % Normal 43.0-75.0 [facility] Comment on above: Performed By: #### C BC #### [facility] [address] [address] [address] Maico Mercer Platelet mean volume (Bld) [Entitic vol] 10.2 fL Normal 9.5-13.5 [facility] Comment on above: Performed By: #### C BC #### [facility] [address] [place] [address] Dr. Maico Mercer PLT 401 103/ul Normal 150-450 [facility] Comment on above: Performed By: #### C BC #### [facility] [address] [place] [address] Dr. Maico Mercer RBC 4.44 106/ul Normal 4.20-5.40 [facility] Comment on above: Performed By: #### C BC #### [facility] [address] [place] [address] Dr. Maico Mercer WBC 7.7 103/ul Normal 4.0-11.0 [facility] Comment on above: Performed By: #### C BC #### [facility] [address] [place] [address] Dr. Maico Mercer MAGNESIUMon 01-25-2023 Magnesium [Mass/Vol] 1.6 mg/dL Critically low 1.8-2.4 [facility] Comment on above: Performed By: #### C MP, TSH, MG #### [facility] [address] [place] [address] Dr. Maico Mercer PROF 14(COMP METB)on 023 Albumin [Mass/Vol] 3.9 g/dL Normal 3.4-5.0 [facility] Comment on above: Performed By: #### C MP, TSH, MG #### [facility] [address] [place] [address] Dr. Maico Mercer Albumin/Globulin [Mass ratio] 1.2 {ratio} Normal [facility] Comment on above: Performed By: #### C MP, TSH, MG #### [facility] [address] [place] [address] Dr. Maico Mercre ALP [Catalytic activity/Vol] 83 U/L Normal 46-116 [facility] Comment on above: Performed By: #### C MP, TSH, MG #### [facility] [address] [place] [address] Dr. Maico Mercer ALT [Catalytic activity/Vol] 27 U/L Normal 14-59 [facility] Comment on above: Performed By: #### C MP, TSH, MG #### [facility] [address] [place] [address] Dr. Maico Mercer Anion gap [Moles/Vol] 13.0 mmol/L Normal [facility] Comment on above: Performed By: #### C MP, TSH, MG #### [facility] [address] [place] [address] Dr. Maico Mercer AST [Catalytic activity/Vol] 15 U/L Normal 15-37 [facility] Comment on above: Performed By: #### C MP, TSH, MG #### [facility] [address] [place] [address] Dr. Maico Mercer Bilirubin [Mass/Vol] 0.8 mg/dL Normal 0.2-1.0 [facility] Comment on above: Performed By: #### C MP, TSH, MG #### [facility] [address] [place] [address] Dr. Maico Mercer Calcium [Mass/Vol] 9.4 mg/dL Normal 8.5-10.1 [facility] Comment on above: Performed By: #### C MP, TSH, MG #### [facility] [address] [place] [address] Dr. Maico Mercer Chloride [Moles/Vol] 103 mmol/L Normal 98-107 [facility] Comment on above: Performed By: #### C MP, TSH, MG #### [facility] [address] [place] [address] Dr. Maico Mercer CO2 [Moles/Vol] 24.3 mmol/L Normal 21.0-32.0 [facility] Comment on above: Performed By: #### C MP, TSH, MG #### [facility] [address] [address] [address] Maico Mercer Creatinine [Mass/Vol] 1.09 mg/dL Critically high 0.55-1.[address] [facility] Comment on above: Performed By: #### C MP, TSH, MG #### [facility] [address] [address] [address] Maico Mercer EGFR-AF [facility] >60 Normal >=60 [facility] Comment on above: Performed By: #### C MP, TSH, MG #### [facility] [address] [place] [address] Dr. Maico Mercer EGFR-NON AF [facility] 58 mL/min/1.73m2 Critically low >=[address] [facility] Comment on above: Performed By: #### C MP, TSH, MG #### [facility] [address] [address] [address] Maico Mercer Globulin (S) [Mass/Vol] 3.2 g/dL Normal [facility] Comment on above: Performed By: #### C MP, TSH, MG #### [facility] [address] [address] [address] Maico Mercer Glucose [Mass/Vol] 91 mg/dL Normal 74-106 [facility] Comment on above: Performed By: #### C MP, TSH, MG #### [facility] [address] [place] [address] Dr. Maico Mercer Potassium [Moles/Vol] 4.3 mmol/L Normal 3.5-5.[address] [facility] Comment on above: Performed By: #### C MP, TSH, MG #### [facility] [address] [address] [address] Maico Mercer Protein [Mass/Vol] 7.1 g/dL Normal 6.4-8.2 [facility] Comment on above: Performed By: #### C MP, TSH, MG #### [facility] [address] [place] [address] Dr. Maico Mercer Sodium [Moles/Vol] 136 mmol/L Normal 136-145 [facility] Comment on above: Performed By: #### C MP, TSH, MG #### [facility] [address] [place] [address] Dr. Maico Mercer Urea nitrogen [Mass/Vol] 15.0 mg/dL Normal 7.0-18.0 [facility] Comment on above: Performed By: #### C MP, TSH, MG #### [facility] [address] [place] [address] Dr. Maico Mercer Urea nitrogen/Creatinine [Mass ratio] 13.8 mg/mg Normal [facility] Comment on above: Performed By: #### C MP, TSH, MG #### [facility] [address] [place] [address] Dr. Maico Mercer TSHon 01-25-2023 TSH 1.750 uIU/mL Normal 0.358-3.740 [facility] Comment on above: Performed By: #### C MP, TSH, MG #### [facility] [address] [place] [address] Dr. Maico Mercer FREE T3on 01-02-2023 FREE T3 2.27 pg/mlL Normal 2.18-3.98 [facility] [place] Comment on above: Performed By: #### F T3, TSH #### [facility] [address] [place] [address] Dr. Maico Mercer FREE T4on 01-02-2023 Free T4 [Mass/Vol] 1.13 ng/dL Normal 0.76-1.46 [facility] Comment on above: Performed By: #### F T4 #### [facility] [address] [place] [address] Dr. Maico Mercer TSHon 01-02-2023 TSH 1.637 uIU/mL Normal 0.358-3.740 [facility] Comment on above: Performed By: #### F T3, TSH #### [facility] [address] [place] [address] Dr. Maico Mercer RESPIRATORY PANEL PLUSon Adenovirus Not detected Normal NOT DETECTED [facility] Comment on above: Performed By: #### R SPLUS #### [facility] [address] [place] [address] Dr. Maico Santiago Parapertusis Not detected Normal NOT DETECTED [facility] Comment on above: Performed By: #### R SPLUS #### [facility] [address] [place] [address] Dr. Maico Santiago Pertussis Not detected Normal NOT DETECTED [facility] Comment on above: Performed By: #### R SPLUS #### [facility] [address] [place] [address] Dr. Maico Mercer Chlamydia Pneumoniae Not detected Normal NOT DETECTED [facility] Comment on above: Performed By: #### R SPLUS #### [facility] [address] [place] [address] Dr. Maico Mercer Coronavirus 229E Not detected Normal NOT DETECTED [facility] Comment on above: Performed By: #### R SPLUS #### [facility] [address] [place] [address] Dr. Maico Mercer Coronavirus HKU1 Not detected Normal NOT DETECTED [facility] Comment on above: Performed By: #### R SPLUS #### [facility] [address] [place] [address] Dr. Maico Mercer Coronavirus NL63 Not detected Normal NOT DETECTED [facility] Comment on above: Performed By: #### R SPLUS #### [facility] [address] [place] [address] Dr. Maico Mercer Coronavirus OC43 Not detected Normal NOT DETECTED [facility] Comment on above: Performed By: #### R SPLUS #### [facility] [address] [place] [address] Dr. Maico Mercer Influenza A H1 2009 Not detected Normal NOT DETECTED [facility] Comment on above: Performed By: #### R SPLUS #### [facility] [address] [place] [address] Dr. Maico Mercer Influenza A H3 Not detected Normal NOT DETECTED [facility] Comment on above: Performed By: #### R SPLUS #### [facility] [address] [address] [address] Maico Mercer Influenza B Not detected Normal NOT DETECTED [facility] Comment on above: Performed By: #### R SPLUS #### [facility] [address] [place] [address] Dr. Maico Mercer Metapneumovirus Not detected Normal NOT DETECTED [facility] Comment on above: Performed By: #### R SPLUS #### [facility] [address] [place] [address] Dr. Maico Mercer Mycoplas. Pneumoniae Not detected Normal NOT DETECTED [facility] Comment on above: Performed By: #### R SPLUS #### [facility] [address] [place] [address] Dr. Maico Mercer Parainfluenza 1 Not detected Normal NOT DETECTED [facility] Comment on above: Performed By: #### R SPLUS #### [facility] [address] [place] [address] Dr. Maico Mercer Parainfluenza 2 Not detected Normal NOT DETECTED [facility] Comment on above: Performed By: #### R SPLUS #### [facility] [address] [place] [address] Dr. Maico Mercer Parainfluenza 3 Not detected Normal NOT DETECTED [facility] Comment on above: Performed By: #### R SPLUS #### [facility] [address] [place] [address] Dr. Maico Mercer Parainfluenza 4 Not detected Normal NOT DETECTED [facility] Comment on above: Performed By: #### R SPLUS #### [facility] [address] [place] [address] Dr. Maico Mercer Rhino/Enterovirus Not detected Normal NOT DETECTED [facility] Comment on above: Performed By: #### R SPLUS #### [facility] [address] [place] [address] Dr. Maico Mercer RP2 Header 1 RESPIRATORY PANEL: VIRUSES Normal [facility] Comment on above: Performed By: #### R SPLUS #### [facility] [address] [address] [address] Maico Mercer RP2 Header 2 RESPIRATORY PANEL: BACTERIA Normal [facility] Comment on above: Performed By: #### R SPLUS #### [facility] [address] [address] [address] Maico Mercer RSV Not detected Normal NOT DETECTED [facility] Comment on above: Performed By: #### R SPLUS #### [facility] [address] [address] [address] Maico Mercer SARS-CoV-2 (COVID-19) RNA ANISH+probe Ql (Unsp spec) Not detected Normal NOT DETECTED [facility] Comment on above: Performed By: #### R SPLUS #### [facility] [address] [place] [address] Dr. Maico Mercer Ambulatory Clinical Summaryo n 08-16-2020 Ambulatory Clinical Summary {[id number] Normal [facility] General Surgery Office/Clini c Noteon 08-16-2020 General Surgery Office/Clinic Note Chief Complaint post operative follow up HPI Staff Presents for 7 day post operative follow up post lap cholecystectomy. Doing well. Minimal discomfort. No use of pain medication since day 3 post operatively. Denies nausea or vomiting. Bowels moving well. Appetite good. No drainage from incision sites. Afebrile. History of Present Illness 7 days s/p LS cholecystectomy; pathology revealed over 50 small stones; doing well, denies pain, no N/V; no drainage from incisions, eating well, normal bms. Review of Systems ROS - Provider Constitutional: no fever, no sweats, no weight loss. Eyes: no glasses, no blurred vision, no visual loss. ENMT: no dentures, no hoarseness, no swallowing difficulties, no hearing loss, no ear infection(s), no nose bleeds. Cardiovascular: normal blood pressure, no chest pain, regular heartbeat, no heart murmur. Respiratory: no shortness of breath, no cough, no asthma, no wheezing. Gastrointestinal: no nausea, no vomiting, no diarrhea, no constipation, no blood in stool, no change in bowel habits, mild abdominal pain, no hepatitis. Genitourinary: no kidney stones, no urine infection, no dysuria. Musculoskeletal: no pain, no weakness. Skin: no changing moles, no rash, no skin lumps. Neurologic: no seizures, no epilepsy, no headache. Psychiatric: no emotional or psychiatric problem. Heme/Lymph: no bleeding problems, no anemia, no blood clots, no transfusions. Allergy/Immunologic: no swollen lymph nodes/glands, no IV drug abuse. Other: Additional ROS info: Except as noted in the above Review of Systems and in the History of Present Illness, all other systems have been reviewed and are negative or noncontributory. Physical Exam Vitals & Measurements T: 36.8 ?C (Tympanic) abd: obese, soft, normal bs, incisions without erythema or drainage, no ecchymoses. glue intact Assessment/Plan 1. Symptomatic cholelithiasis (K80.20: Calculus of gallbladder without cholecystitis without obstruction) doing well, continue no lifting > 10 lbs for an additional 3 weeks; call with problems/questions. Orders: hyoscyamine, 0.125 mg = 1 tab(s), Oral, QID, PRN for spasm, # 30 tab(s), Refills(s) 0, [facility]: [facility], 175.3, cm, 07/11/20 14:39:00 EDT, Height/Length Dosing, 149.2, kg, 07/11/20 14:39:00 EDT, Weight Dosing ondansetron, 4 mg = 1 tab(s), Oral, q6hr, PRN Nausea/Vomiting, # 30 tab(s), Refills(s) 0, Pharmacy: [facility], 175.3, cm, 07/11/20 14:39:00 EDT, Height/Length Dosing, 149.2, kg, 07/11/20 14:39:00 EDT, Weight Dosing Follow-up With When Contact Information ILSA GORE, Brady Sorenson Only if needed [address] [place] [address]- Additional Instructions: Problem List/Past Medical History Ongoing BMI 45.0-49.9, adult Symptomatic cholelithiasis Historical No qualifying data Procedure/Surgical History Laparoscopic cholecystectomy (08/09/2020). Medications No active medications Allergies Latex (Hives) Social History Alcohol Current, Beer, 1-2 times per month, 07/11/2020 Substance Abuse - Denies Substance Abuse, 11/25/2019 Tobacco Never (less than 100 in lifetime) Tobacco Use:. Never Smokeless Tobacco Use:., 07/11/2020 Family History Family history is negative Immunizations Vaccine Date Status influenza virus vaccine, live, trivalent 09/01/2019 Recorded Normal [facility] Comment on above: Result Comment: Elec tronically Signed By: ILSA GORE, Brady Maurice\Date and Time Signed: 08/16/20 16:23 EDT Operative Reporton 0 Operative Report [id number] .00CD:127 [facility] Pathology Noteon 08-11-2020 Pathology Note [id number] .00CD:127 [facility] Lab Reportson 08-07-2020 Lab Reports [id number] .00CD:127 [facility] Formson 07-18-2020 Forms [id number] .00CD:127 [facility] Consent for Procedure/Surger yon 07-13-2020 Consent for Procedure/Surgery [id number] .00CD:127 [facility] General Surgery Office/Clini c Noteon 07-13-2020 General Surgery Office/Clinic Note Chief Complaint re-evaluate cholelithiasis HPI Staff 30 year old female presents to re-evaluate symptomatic cholelithiasis. Last evaluation 10/2019. Patient requested to hold off on surgery due to work schedule. Mostly asymptomatic since last visit. Did experience one-two episodes since last visit with most recent episode lasting one week time frame. Experienced RUQ pain with nausea, vomiting and diarrhea. High fat foods will initiate an attack . History of Present Illness 30 yo female with morbid obesity, reports several year h/o intermittent right upper quadrant pain, sharp, some radiation to chest, associated with nausea, occasional emesis, loose stools; worse after eating fatty foods; severe attack in October 2018 seen in ED, US of gallbladder with multiple stones, no ductal dilation, no GB wall thickening; seen in office then, but wanted to hold off on surgery; has been on low fat diet with minimal symptoms, but recently had attack, then soreness for almost a week, resolved now; no h/o jaundice or pancreatitis; no previous abdominal operations, no asa or NSAID use. denies tobacco use. Review of Systems PHQ Score Initial Depression Screen Score: 0 ROS - Provider Constitutional: no fever, no sweats, no weight loss. Eyes: no glasses, no blurred vision, no visual loss. ENMT: no dentures, no hoarseness, no swallowing difficulties, no hearing loss, no ear infection(s), no nose bleeds. Cardiovascular: normal blood pressure, no chest pain, regular heartbeat, no heart murmur. Respiratory: no shortness of breath, no cough, no asthma, no wheezing. Gastrointestinal: mild nausea, no vomiting, mild diarrhea, no constipation, no blood in stool, no change in bowel habits, mild abdominal pain, no hepatitis. Genitourinary: no kidney stones, no urine infection, no dysuria. Musculoskeletal: no pain, no weakness. Skin: no changing moles, no rash, no skin lumps. Neurologic: no seizures, no epilepsy, no headache. Psychiatric: no emotional or psychiatric problem. Heme/Lymph: no bleeding problems, no anemia, no blood clots, no transfusions. Allergy/Immunologic: no swollen lymph nodes/glands, no IV drug abuse. Other: Additional ROS info: Except as noted in the above Review of Systems and in the History of Present Illness, all other systems have been reviewed and are negative or noncontributory. Physical Exam Vitals & Measurements T: 36.8 ?C (Tympanic) HR: 86(Peripheral) RR: 16 BP: 132/88 HT: 175.3 cm HT: 175.3 cm WT: 149.2 kg WT: 149.2 kg BMI: 48.55 HEENT: normal conjunctiva, sclera clear, no scleral icterus, EOM intact, PERRLA. oral mucosa moist without lesions Neck: trachea midline , no mass, symmetric, no thyromegaly or nodules. no adenopathy Respiratory: lungs CTA, respirations non labored. Cardiovascular: regular rate and rhythm, no murmur, , no pedal edema or varicosities. Gastrointestinal: obese, soft, non distended, no tenderness, no masses, no palpable hernias, diastasis recti yes, no hepatosplenomegaly. normal bs Lymphatic: no cervical adenopathy, no axillary adenopathy, Musculoskeletal: normalgait, digits and nails without infection, nodes, cyanosis, clubbing. Skin: no rashes, no lesions, no ulcers, no subcutaneous nodules, induration. Psychiatric/Neuro: oriented to time, place, person, judgement normal, affect appropriate for age, insight intact, no focal deficits. Tests: x-rays reviewed, review of old records completed, Discussed surgical options, risks, and possible complications with patient. Assessment/Plan 1. Symptomatic cholelithiasis (K80.20: Calculus of gallbladder without cholecystitis without obstruction) plan laparoscopic cholecystectomy with possible intraoperative cholangiogram, informed consent obtained. patient understands the risks associated with COVID-19, and the need for preoperative testing with self-isolation until the procedure. Unasyn 3 gms IV prior to OR SCDs 2. BMI 45.0-49.9, adult (Z68.42: Body mass index (BMI) 45.0-49.9, adult) recommend diet and exercise. Follow-up No qualifying data available Patient Education Laparoscopic Cholecystectomy Problem List/Past Medical History Ongoing BMI 45.0-49.9, adult Symptomatic cholelithiasis Historical No qualifying data Procedure/Surgical History None. Medications No active medications Allergies Latex (Hives) Social History Alcohol Current, Beer, 1-2 times per month, 07/11/2020 Substance Abuse - Denies Substance Abuse, 11/25/2019 Tobacco Never (less than 100 in lifetime) Tobacco Use:. Never Smokeless Tobacco Use:., 07/11/2020 Family History Family history is negative Immunizations Vaccine Date Status influenza virus vaccine, live, trivalent 09/01/2019 Recorded Normal [facility] Comment on above: Result Comment: Elec tronically Signed By: ILSA GORE, Brady Maurice\Date and Time Signed: 07/13/20 09:13 EDT Ambulatory Clinical Summaryo n 07-11-2020 Ambulatory Clinical Summary {[id number]}CD:[id number] [facility] Patient Educationon 07-11-20 20 Patient Education Family Medicine Laparoscopic Cholecystectomy Laparoscopic cholecystectomy is surgery to remove the gallbladder. The gallbladder is located slightly to the right of center in the abdomen, behind the liver. It is a concentrating and storage sac for the bile produced in the liver. Bile aids in the digestion and absorption of fats. Gallbladder disease (cholecystitis ) is an inflammation of your gallbladder. This condition is usually caused by a buildup of gallstones (cholelithiasis ) in your gallbladder. Gallstones can block the flow of bile, resulting in inflammation and pain. In severe cases, emergency surgery may be required. When emergency surgery is not required, you will have time to prepare for the procedure. Laparoscopic surgery is an alternative to open surgery. Laparoscopic surgery usually has a shorter recovery time. Your common bile duct may also need to be examined and explored. Your caregiver will discuss this with you if he or she feels this should be done. If stones are found in the common bile duct, they may be removed. LET YOUR CAREGIVER KNOW ABOUT: ? Allergies to food or medicine. ? Medicines taken, including vitamins, herbs, eyedrops, nori-[id number]-[id number] medicines, and creams. ? Use of steroids (by mouth or creams). ? Previous problems with anesthetics or numbing medicines. ? History of bleeding problems or blood clots. ? Previous surgery. ? Other health problems, including diabetes and kidney problems. ? Possibility of , if this applies. RISKS AND COMPLICATIONS All surgery is associated with risks. Some problems that may occur following this procedure include: ? Infection. ? Damage to the common bile duct, nerves, arteries, veins, or other internal organs such as the stomach or intestines. ? Bleeding. ? A stone may remain in the common bile duct. BEFORE THE PROCEDURE ? Do not take aspirin for 3 days prior to surgery or blood thinners for 1 week prior to surgery. ? Do not eat or drink anything after midnight the night before surgery. ? Let your caregiver know if you develop a cold or other infectious problem prior to surgery. ? You should be present 60 minutes before the procedure or as directed. PROCEDURE You will be given medicine that makes you sleep (general anesthetic ). When you are asleep, your surgeon will make several small cuts (incisions ) in your abdomen. One of these incisions is used to insert a small, lighted scope (laparoscope ) into the abdomen. The laparoscope helps the surgeon see into your abdomen. Carbon dioxide gas will be pumped into your abdomen. The gas allows more room for the surgeon to perform your surgery. Other operating instruments are inserted through the other incisions. Laparoscopic procedures may not be appropriate when: ? There is major scarring from previous surgery. ? The gallbladder is extremely inflamed. ? There are bleeding disorders or unexpected cirrhosis of the liver. ? A is near term. ? Other conditions make the laparoscopic procedure impossible. If your surgeon feels it is not safe to continue with a laparoscopic procedure, he or she will perform an open abdominal procedure. In this case, the surgeon will make an incision to open the abdomen. This gives the surgeon a larger view and field to work within. This may allow the surgeon to perform procedures that sometimes cannot be performed with a laparoscope alone. Open surgery has a longer recovery time. AFTER THE PROCEDURE ? You will be taken to the recovery area where a nurse will watch and check your progress. ? You may be allowed to go home the same day. ? Do not resume physical activities until directed by your caregiver. ? You may resume a normal diet and activities as directed. Document Released: 10/13/2006 Document Revised: 01/04/2013 Document Reviewed: 03/27/2012 ExitCare? Patient Information ?2013 [employer]. Normal [facility] VZ Immunityon 05-29-2018 VZ Immunity 1.84 Normal >1.09 [facility] Comment on above: Result Comment: Inte rpretation:IMMUNEReference Range:<0.91 Not Immune0.91-1.09 Equivocal>1.09 Immune Performed By: #### V ####[employer] [place] [address] Encounters Encounter Date Encounter Type Care Provider Facility Start: 10-14-2024 End: 10-14-2024 Orders Only Isael Lazcano MD Work Phone: [facility] Comment on above: Migraine with aura, not intractable, without status migrainosus (CMS/HCC); Migraine with aura (CMS/HCC) Start: 10-13-2024 End: 10-13-2024 Orders Only Isael Lazcano MD Work Phone: [facility] Comment on above: Generalized anxiety disorder (CMS/HCC) Start: 09-30-2024 End: 09-30-2024 ambulatory [facility] Start: 09-30-2024 Encounter for gynecological examination (general) (routine) without abnormal findings [facility] Start: 09-30-2024 End: 09-30-2024 ambulatory [facility] Start: 09-30-2024 Encounter for gynecological examination (general) (routine) without abnormal findings [facility] Start: 03-02-2024 End: 03-02-2024 ambulatory ISAEL LAZCANO Not Available Start: 02-12-2024 End: 02-12-2024 ambulatory ISAEL LAZCANO Not Available Start: 01-28-2024 Patient encounter procedure Isael Lazcano MD Work Phone: [facility] Start: 01-28-2024 End: 01-28-2024 ambulatory ISAEL LAZCANO Not Available Start: 11-27-2023 End: 11-27-2023 ambulatory ISAEL LAZCANO Not Available Start: 10-30-2023 End: 10-30-2023 ambulatory ISAEL LAZCANO Not Available Start: 10-02-2023 End: 10-02-2023 ambulatory ISAEL LAZCANO Not Available Start: 03-26-2023 End: 03-26-2023 ambulatory SALLY MANN Facility:[facility] Start: 01-25-2023 End: 01-26-[address] ISAEL LAZCANO Facility:[facility] Start: 01-02-2023 End: 01-03-[address] ISAEL LAZCANO Facility:[facility] Start: 10-17-2022 End: 10-17-[address] ISAEL LAZCANO Facility:[facility] Start: 08-18-2022 End: 08-19-2022 ambulatory VERONICA CEBALLOS Facility:[facility] Start: 04-06-2022 End: 04-06-[address] TREVOR WANG Facility: Start: 05-27-2018 End: 05-28-2018 Patient encounter SANA AKBAR [facility] Procedures Date Procedure Procedure Detail Performing Clinician Start: 05-27-2018 VARICELLA ZOSTER ANT IBODY, IGG SANA AKBAR Plan of Treatment Date Care Activity Detail Author Start: 09-30-2029 Screening for malign ant neoplasm of cervix [facility] Start: 06-27-2024 Influenza vaccination Influenza Vacc ine (#1) [facility] Start: 01-07-2012 Screening for malign ant neoplasm of cervix Pap Smear [facility] Immunizations Immunization Date Immunization Notes Care Provider Fa cility 08-09-2019 influenza virus vacc ine, unspecified formulation Isael Lazcano MD Work Phone: [facility] Payers Date Payer Category Payer [facility] [id number] 2022 Unknown [id number] 2019 Unknown [id number] 2018 Unknown [id number] 1991 Unknown [id number] 2.16.840.1.708921.3.579.2. 593 1991 Unknown [id number] 2.16.840.1.089233.3.579.2. 593 1991 Unknown [id number] 2.16.840.1.161422.3.579.2. 593 1991 Unknown [id number] 2.16.840.1.433374.3.579.2. 593 1991 Unknown [id number] 2.16.840.1.391321.3.579.2. 593 1991 Unknown [id number] 2.16.840.1.114933.3.579.2. 593 1991 Unknown [id number] 2.16.840.1.405417.3.579.2. 1259 1991 Unknown [id number] 2.16.840.1.885527.3.579.2. 1259 1991 Unknown [id number] 2.16.840.1.563522.3.579.2. 1259 1991 Unknown [id number] 2.16.840.1.687128.3.579.2. 1259 1991 Unknown [id number] 2.16.840.1.434851.3.579.2. 1259 1991 Unknown [id number] 2.16.840.1.268336.3.579.2. 1259 1991 Unknown [id number] 2.16.840.1.009936.3.579.2. 1286 1991 Unknown [id number] 2.16.840.1.446095.3.579.2. 1286 1991 Unknown [id number] 2.16.840.1.297911.3.579.2. 1286 Unknown [id number] Social History Date Type Detail Facility Start: 10-02-2023 Tobacco smoking status [facility] Never sm oked tobacco [facility] Start: 10-02-2023 Tobacco use and exposure Smoke less tobacco non-user [facility] Start: 01-27-2024 End: 03-02-2024 [facility] of [facility] Start: 01-27-2024 End: 03-02-2024 Social connection and isolation panel [facility] Do you belong to any clubs or organizations such as worship groups, unions, fraternal or athletic groups, or school groups? Yes [facility] Are you now , , , , never or living with a partner? [facility] How often to you hav e a drink containing alcohol? 2-4 times a month [facility] How many standard dr inks containing alcohol do you have on a typical day? 3 or 4 [facility] How often do you hav e 6 or more drinks on 1 occasion? Less than monthly [facility] How hard is it for y ou to pay for the very basics like food, housing, medical care, and heating Not hard at all [facility] Do you feel stress - tense, restless, nervous, or anxious, or unable to sleep at night because your mind is troubled all the time - these days [OSQ] To some extent [facility] (I/We) worried wheth er (my/our) food would run out before (I/we) got money to buy more. Never true [facility] Healthcare In the past 12 month s, was there a time when you were not able to pay the mortgage or rent on time? No [facility] Start: 1990 Sex assigned at Not on file [facility] Evaluation note Note Date & Type Note Facility Evaluation note Diagnosis Acquired hypothyroidism (CMS/HCC)- Primary Unspecified hypothyroidism Morbid obesity (CMS/HCC) Morbid obesity Vaginal saul Candidiasis of vulva and vagina Morbid obesity (CMS/HCC)- Primary Morbid obesity Generalized anxiety disorder (CMS/HCC)- Primary Generalized anxiety disorder Migraine with aura and without status migrainosus, not intractable (CMS/HCC) Morbid obesity due to excess calories (CMS/HCC) Acquired hypothyroidism (CMS/HCC) Unspecified hypothyroidism Annual physical exam- Primary Routine general medical examination at a health care facility Generalized anxiety disorder (CMS/HCC) Generalized anxiety disorder Morbid obesity due to excess calories (CMS/HCC) Acquired hypothyroidism (CMS/HCC) Unspecified hypothyroidism Morbid obesity due to excess calories (CMS/HCC)- Primary Motion sickness, initial encounter Lumbar strain, initial encounter- Primary Acute non-recurrent pansinusitis Generalized anxiety disorder (CMS/HCC) Generalized anxiety disorder documented in this encounter [facility] Evaluation note Note Date & Type Note Facility Evaluation note Diagnosis Acquired hypothyroidism (CMS/HCC)- Primary Unspecified hypothyroidism Morbid obesity (CMS/HCC) Morbid obesity Vaginal saul Candidiasis of vulva and vagina Morbid obesity (CMS/HCC)- Primary Morbid obesity Generalized anxiety disorder (CMS/HCC)- Primary Generalized anxiety disorder Migraine with aura and without status migrainosus, not intractable (CMS/HCC) Morbid obesity due to excess calories (CMS/HCC) Acquired hypothyroidism (CMS/HCC) Unspecified hypothyroidism Annual physical exam- Primary Routine general medical examination at a health care facility Generalized anxiety disorder (CMS/HCC) Generalized anxiety disorder Morbid obesity due to excess calories (CMS/HCC) Acquired hypothyroidism (CMS/HCC) Unspecified hypothyroidism Morbid obesity due to excess calories (CMS/HCC)- Primary Motion sickness, initial encounter Lumbar strain, initial encounter- Primary Acute non-recurrent pansinusitis Migraine with aura, not intractable, without status migrainosus (CMS/HCC) documented in this encounter [facility] Summary Purpose Family History No Family History Records FoundNo Family History Records FoundNo Family History Records FoundNo Family History Records FoundNo Family History Records FoundNo Family History Records Found Advance Directives No Advanced Directives Records FoundNo Advanced Directives Records FoundNo Advanced Directives Records FoundNo Advanced Directives Records FoundNo Advanced Directives Records FoundNo Advanced Directives Records Found Additional Source Comments INFORMATION SOURCE (unrecogn ized section and content) DATE CREATED AUTHOR 06/08/2018 [facility] DATE CREATED AUTHOR AUTHOR'S ORGANIZ ATION 03/20/2021 [facility] DATE CREATED AUTHOR AUTHOR'S ORGANIZ ATION 04/04/2023 [facility] DATE CREATED AUTHOR AUTHOR'S ORGANIZ ATION 03/03/2024 [facility] DATE CREATED AUTHOR AUTHOR'S ORGANIZ ATION 10/16/2024 [facility] DATE CREATED AUTHOR AUTHOR'S ORGANIZ ATION 10/18/2024 [facility] Care Teams (unrecognized sec tion and content) Secretary To Board Of Commissioners Relationship Specialty Start Date End Date Isael Lazcano MD [address] [place] [phone] PCP - General Family Medicine 01/28/24 Isael Lazcano MD [address] [place] [phone] [facility] 01/26/24 Secretary To Board Of Commissioners Relationship Specialty Start Date End Date Isael Lazcano MD [address] [place] [phone] PCP - General Family Medicine 01/28/24 Isael Lazcano MD [address] [place] [phone] PCP - [facility] 01/26/24 FOR RECORDS PERTAINING TO PATIENTS WHO ARE [...] BE BASED ON THE PRIMARY CLINICAL RECORDS. [facility]. provides no warranty or guarantee of the accuracy or completeness of information in this document.
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
== END 2025-06-08 10:42 | disposition home or self-care (01) ==
PROVIDERS: Emergency Provider Emergency Medicine; PCP Family Medicine
DX: S16.1XXA Strain of muscle, fascia and tendon at neck level, initial encounter (principal); S39.012A Strain of muscle, fascia and tendon of lower back, initial encounter; V49.40XA Driver injured in collision with unspecified motor vehicles in traffic accident, initial encounter; M25.511 Pain in right shoulder
CPT/HCPCS: 72040; 72100; 73030; 99283